=== PATIENT | male | born 1990 ===

== ENCOUNTER 2018-10-27 16:48 | Emergency (ER) | payer OTHER ==
[2018-10-27 16:51] VITALS: O2SAT 100
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
[2018-10-27 18:29] VITALS: BP 129/88; PULSE 80; RESP 18; TEMP 98.5
--- NOTE | 2018-10-28 16:41 | RAD ---
Date of service: 10/27/2018 PROCEDURE: Left Knee Radiographs. HISTORY: Pain. COMPARISON: None. FINDINGS: BONES: Normal. No fracture. JOINTS: Normal. No osteoarthritis. JOINT EFFUSION: None. OTHER FINDINGS: None. IMPRESSION: Normal radiographs of the left knee.
== END 2018-10-27 18:28 | disposition home or self-care (01) ==
LOC: H.ER 16:48
DX: S83.92XA Sprain of unspecified site of left knee, initial encounter (principal); M54.9 Dorsalgia, unspecified; V13.4XXA Pedal cycle driver injured in collision with car, pick-up truck or van in traffic accident, initial encounter; Y92.410 Unspecified street and highway as the place of occurrence of the external cause
CPT/HCPCS: 29530; 73562; 96372; 99285; J1885